=== PATIENT | male | born 1960 | race Caucasian/White ===

== ENCOUNTER → 2017-06-29 | Outpatient (CLI) | payer OTHER ==
[2017-06-29 09:25] LABS: BASO % 1 % (0-3); EOS # 0.1 x10^3/uL (0.0-0.7); EOS % 1 % (0-3); HEMATOCRIT 44.4 % (39.0-53.0); HEMOGLOBIN 15.3 g/dL (13.0-17.5); LYMPH # 1.7 x10^3/uL (1.0-4.8); LYMPH % 29 % (24-48); MEAN CORPUSCULAR HEMOGLOBIN 30 pg (25-35); MEAN CORPUSCULAR HGB CONC 34 g/dL (31-37); MEAN CORPUSCULAR VOLUME 86 fL (79-100); MONO # 0.6 x10^3/uL (0.0-1.1); MONO % 11 % (0-9); NEUT # 3.6 x10^3uL (1.8-7.7); NEUT % 59 % (31-73); PLATELET COUNT 237 x10^3/uL (140-400); RED BLOOD COUNT 5.16 x10^6/uL (4.30-5.70); RED CELL DISTRIBUTION WIDTH 13.4 % (11.5-14.5)
[2017-06-29 09:28] LABS: ALBUMIN 3.8 g/dL (3.4-5.0); ALBUMIN/GLOBULIN RATIO 1.1 (1.0-1.7); CALCIUM 9.1 mg/dL (8.5-10.1); CREATININE 1.1 mg/dL (0.7-1.3); GFR 68.8; POTASSIUM 4.6 mmol/L (3.5-5.1); TOTAL BILIRUBIN 0.4 mg/dL (0.2-1.0); TOTAL PROTEIN 7.2 g/dL (6.4-8.2)
--- NOTE | 2017-06-29 10:34 | RAD ---
Indication: Right flank pain radiating to the abdomen and throughout right hip, for more than 3 days. No hematuria. Technique: CT abdomen and pelvis without IV contrast with multiplanar reformats. Comparison: None Findings: Limited evaluation of solid abdominal organs due to lack of IV contrast. Heart is normal in size. Fatty infiltration in the region of the left ventricular apex likely related to prior myocardial infarction. Clinically correlate. No pericardial or pleural effusion. Clear lung bases. The noncontrast appearance of the liver, spleen, gallbladder, pancreas, adrenals is within normal limits. Punctate bilateral renal stones. No hydronephrosis. No perinephric fluid collection. There is a well-circumscribed exophytic lesion within inferior pole of the left kidney measuring 4.5 x 6.8 x 4.6 cm with few foci of fat density. No retroperitoneal, pelvic or inguinal adenopathy. Appendix is not visualized. No bowel obstruction. Sigmoid and descending colon diverticulosis without diverticulitis. Bladder show no radiopaque stones. Prostate and seminal vesicles show no mass lesion. No suspicious bony lesion. Degenerative disc disease noted at multiple levels with anterior bridging osteophytes worse at L4-L5. Impression: Limited evaluation of solid abdominal organs due to lack of IV contrast. 1. Bilateral nonobstructing punctate renal stones. No hydronephrosis. No imaging evidence of obstructive uropathy. 2. 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 However, MRI abdomen without and with IV contrast recommended for further evaluation. 3. Sigmoid and descending colon diverticulosis without diverticulitis PQRS Compliance Statement: One or more of the following individualized dose reduction techniques were utilized for this examination: 1. Automated exposure control 2. Adjustment of the mA and/or kV according to patient size 3. Use of iterative reconstruction technique
== END | disposition home or self-care (01) ==
LOC: PMG 08:45
PROVIDERS: ATTEND Physician Assistant Medical
DX: N20.0 Calculus of kidney (principal); K57.30 Diverticulosis of large intestine without perforation or abscess without bleeding; N28.89 Other specified disorders of kidney and ureter
CPT/HCPCS: 36415; 74176; 80053; 85025

== ENCOUNTER → 2017-07-03 | Outpatient (CLI) | payer OTHER ==
--- NOTE | 2017-07-03 08:17 | RAD ---
Indication: Fall 2 days ago. Severe left rib pain since Technique: Multiple views of the left ribs Comparison: None Findings: There is cortical abnormality seen of the lateral aspect of the 10th rib. Left lung is clear. Impression: Questionable nondisplaced fracture of the lateral aspect of the left 10th rib. Clinically correlate with focal tenderness.
== END | disposition home or self-care (01) ==
LOC: PMG 07:24
PROVIDERS: ATTEND Physician Assistant Medical
DX: R07.81 Pleurodynia (principal); W19.XXXA Unspecified fall, initial encounter; Y93.89 Activity, other specified; Y92.89 Other specified places as the place of occurrence of the external cause; Y99.8 Other external cause status
CPT/HCPCS: 71100

== ENCOUNTER → 2018-05-25 | Outpatient (CLI) | payer OTHER ==
[~2018-05-25] VITALS: Ht 175.3 cm; Wt 93.0 kg
[~2018-05-25] MED LIST: ASPI81TA50 PO; REGADENOSON 0.4 MG/5 ML DISP.SYRIN. IV ONE
--- NOTE | 2018-05-25 12:48 | CARD ---
MR#: [id number] Date of Study: 05/25/2018 Ordering Physician: MACI MCCARTY, Referring Physician: MACI MCCARTY, Tech: Deirdre Jeronimo APPROVED REPORT EXAM: Two-dimensional and M-mode echocardiogram with Doppler and color Doppler. Other Information Quality : AverageHR: 78bpm INDICATION CAD 2D DIMENSIONS RVDd2.5 (2.9-3.5cm)Left Atrium(2D)3.9 (1.6-4.0cm) IVSd1.1 (0.7-1.1cm)Aortic Root(2D)2.9 (2.0-3.7cm) LVDd5.3 (3.9-5.9cm)LVOT Diameter2.2 (1.8-2.4cm) PWd0.9 (0.7-1.1cm)LVDs3.2 (2.5-4.0cm) FS (%) 39.0 %SV93.4 ml LVEF(%)69.0 (>50%) Aortic Valve AoV Peak Mac.127.9cm/sAoV VTI26.4cm AO Peak GR.6.5mmHgLVOT Peak Mac.91.3cm/s LVOT VTI 16.61cmAO Mean GR.4mmHg EMMY (VMAX)2.53zv3LAA (VTI)2.47cm2 Mitral Valve MV E Amwqbobs66.4cm/sMV DECEL [id number] MV A Dlimmhxq75.2cm/sE/A Ratio0.8 Pulmonary Valve PV Peak Xmlgtsif501.2cm/sPV Peak Grad.8mmHg Pulmonary Vein S1 Uveiqzor13.6cm/sD2 Ttpuwedz65.5cm/s LEFT VENTRICLE The left ventricle is normal size. There is borderline concentric left ventricular hypertrophy. The l eft ventricular systolic function is normal. The ejection fraction is estimated at 60%. There is norm al LV segmental wall motion. Transmitral Doppler flow pattern is Grade I-abnormal relaxation pattern. RIGHT VENTRICLE The right ventricle is normal size. There is normal right ventricular wall thickness. The right ventr icular systolic function is normal. ATRIA The left atrium size is normal. The right atrium size is normal. The interatrial septum is intact wit h no evidence for an atrial septal defect or patent foramen ovale as noted on 2-D or Doppler imaging. AORTIC VALVE The aortic valve is normal in structure and function. Doppler and Color Flow revealed trace aortic re gurgitation. There is no significant aortic valvular stenosis. MITRAL VALVE The mitral valve is normal in structure and function. There is no mitral valve stenosis. Doppler and Color-flow revealed trace mitral regurgitation. TRICUSPID VALVE The tricuspid valve is normal in structure and function. Doppler and Color Flow revealed trace tricus pid regurgitation. There is no tricuspid valve stenosis. PULMONIC VALVE The pulmonary valve is normal in structure and function. Doppler and Color Flow revealed trace pulmon ic valvular regurgitation. GREAT VESSELS The aortic root is normal in size. Normal pulmonary venous flow (Doppler). The IVC is normal in size and collapses >50% with inspiration. PERICARDIAL EFFUSION There is no evidence of significant pericardial effusion. Critical Notification Critical Value: No <Conclusion> The left ventricular systolic function is normal. The ejection fraction is estimated at 60%. There is normal LV segmental wall motion. Transmitral Doppler flow pattern is Grade I-abnormal relaxation pattern. Trace mitral regurgitation. Trace tricuspid regurgitation. There is no evidence of significant pericardial effusion. Signed by : Maci Mccarty, Electronically Approved : 05/25/2018 12:47:32
--- NOTE | 2018-05-25 13:44 | RAD ---
MR#: [id number] Date of Study: 05/25/2018 Ordering Physician: MACI STEINER Referring Physician: REBEKAH FERNANDES Tech: BARB Lemos APPROVED REPORT Test Type: Pharmacological Stress Nurse/Tech: BARB Lemos Test Indications: fatigue, CAD Cardiac History: one stent 2008 Medications: see EHR Medical History: see EHR Resting ECG: SR ASMI sge undetermined - no acute ischemic changes Resting Heart Rate: 64 bpm Resting Blood Pressure: 131/80mmHg Pretest Chest Pain: None Nurse/Tech Notes Consent: The procedure was explained to the patient in lay terms. Informed consent was witnessed. Kevin eout was entered into [employer] History and Stress Test performed by BARB Lemos Pharm. Details Pharmacologic stress testing was performed using 0.4mg per 5ml of regadenoson given intravenously ove r 7-10 seconds. POST EXERCISE Reason for Termination: Infusion complete Max HR: 98 bpm Max Blood Pressure: 125/83mmHg Blood Pressure response to exercise: Normal blood pressure response during stress. Heart Rate response to exercise: normal response Chest Pain: No. INTERPRETATION Stress EKG Conclusion: no chest pain - no acute ekg changes Imaging Protocol IMAGE PROTOCOL: Rest Tc-99m/stress Tc-99m 1 day Rest: Stress: Viability: Radiopharm.Tc99m [id number] Sestamibi Dose10.8mCi 34mCi Duration 17min. 13min. Img Date 05/25/2018 05/25/2018 Inj-Img [id number]. 90min. Rest Admin Site:IV - Left AntecubitalAdministrator: BARB Lemos Stress Admin Site: IV - Left AntecubitalAdministrator: BARB Lemos LV Perfusion There is a moderate sized severe in intensity, mid to distal anterior wall and apical FIXED perfusion defect suggestive of prior infarct without ischemia. There are also large sized, severe in intensity basal to mid septal, anterior and inferior wall FIXED perfusion defect suggestive of prior infarct/artifact. There is significant motion noted on raw imag es. Wall Motion Severe anterior wall hypokinesis. EF 50%. Other Information Quality:Average Risk Assessment: Moderate-High Risk Conclusion 1. No evidence of EKG changes to suggest ischemia. 2. FIXED distal anterior/apical perfusion defect consistent with prior infarct. 3. FIXED basal to mid anterior/septal/inferior wall defects, likely related to motion artifact, no cl ear ischemia noted. 4. Mild LV dysfunction with severe anterior/septal wall hypokinesis. EF 50% 5. Moderate to high risk for future CV events. Signed by : Erwin Carrillo, Electronically Approved : 05/25/2018 13:43:44
== END | disposition home or self-care (01) ==
LOC: NM 07:38
PROVIDERS: ATTEND Internal Medicine Cardiovascular Disease
DX: I25.10 Atherosclerotic heart disease of native coronary artery without angina pectoris (principal); I51.9 Heart disease, unspecified
CPT/HCPCS: 78452; 93017; 93306; 96374; 96375; 96376; A9500; J2785